=== PATIENT | male | born 1955 | race Caucasian/White ===

== ENCOUNTER → 2017-07-22 | Day surgery (SDC) | payer BC ==
[2017-07-07 13:25] VITALS: Ht 170.2 cm; Wt 113.6 kg
[~2017-07-22] VITALS: Ht 170.2 cm; Wt 113.6 kg
[~2017-07-22] MED LIST: ALFU10TA2 PO; ASCO100061 PO; ASPI81TA21 PO; CHOL1000 PO; CIPR-255 PO; DIAZ10TA PO; ERGO500037 PO; GEMF600T PO; HYDR-4383 PO; LIDOCAINE HCL 2% 2 ML VIAL (20MG/ML) ONE; LISI-787 PO; OMEG10007 PO; POTASSIUM PO; PRLSR20 PO; PROPOFOL IV EMULSION 10 MG/ML 20 ML VIAL IV ONE; PSYL48.59 PO; SODIUM CHLORIDE 0.9% 500ML 500 ML IV ONE; TURM500T PO
--- NOTE | 2017-07-22 10:15 | Endo History and Physical ---
History & Physical Date of Service: Jul 22, 2017. Chief Complaint: SCREENING Referring Physician: DR. DOCKERY History of Present Illness 62 yo CM who presents for screening colonoscopy. Past Medical History Osteoporosis, Arthritis, Reflux, Hypertension, Kidney Disease Past Surgical History Hx Cardiac Surgery: No Hx Internal Defibrillator: No Hx Pacemaker: No Hx Abdominal Surgery: No Hx of Implantable Prosthesis: No Hx Post-Op Nausea and Vomiting: No Hx Cancer Surgery: No Hx Thoracic Surgery: No Hx Orthopedic: Yes (LT KNEE SURGERY) Hx Urinary Tract Surgery: No Family History Polyp Social History Smoking Status: Former Smoker Hx Substance Use: Yes (SEE MED LIST) Hx Alcohol Use: No Allergies Coded Allergies: Adhesives (Verified Allergy, Unknown, RASH, 07/07/17) Erythromycin (Verified Allergy, Unknown, hives, 07/07/17) Penicillins (Verified Allergy, Unknown, hives, 07/07/17) Statins (Verified Allergy, Unknown, MUSCLE CRAMPS AND SPASMS, 07/07/17) Uncoded Allergies: DUST, POLLEN, HAY FEVER (Allergy, Unknown, ., 07/07/17) HORSES, CATS (Allergy, Unknown, ., 07/07/17) Current Medications Reported Home Medications Medications Dose Route/Sig Max Daily Dose Days Date Category Dose Instructions Metamucil (Psyllium) 48.57 % Pow 1 Dose PO QAM 07/07/17 Reported Lopid (Gemfibrozil) 600 Mg Tab 600 Mg PO BID 07/07/17 Reported Vitamin D3 (Cholecalciferol) 1,000 Unit Tab 1 Tab PO QAM 07/07/17 Reported [Potassium] 525 Mg PO QPM 07/07/17 Reported Turmeric (Turmeric (Curcuma Longa)) 500 Mg Tab 1 Tab PO QAM 07/07/17 Reported Zestoretic 20-12.5 mg (Lisinopril & Hydrochlorothiazi) 1 Tab Tab 1 Tab PO QAM 07/07/17 Reported Vitamin D 03223 Unit (Ergocalciferol) 50,000 Unit Cap 50,000 Unit PO WK 07/07/17 Reported Uroxatral (Alfuzosin HCl) 10 Mg Tab 10 Mg PO QPM 07/07/17 Reported Cipro (Ciprofloxacin Hcl) 500 Mg Tab 500 Mg PO BID PRN 07/07/17 Reported [place] 10/325 Tab (Acetaminophen/Hydrocodone Bitart) 1 Tab Tab 1 Tab PO Q6H PRN 07/07/17 Reported Ascorbic Acid 1,000 Mg Tab 1 Tab PO QAM 07/07/17 Reported Valium (Diazepam) 10 Mg Tab 10 Mg PO HS 03/21/[address] WITH MEDICATION Prilosec (Omeprazole) 20 Mg Capcr 20 Mg PO BID 03/21/15 Reported Ecotrin Or Generic (Aspirin) 81 Mg Tab 81 Mg PO QAM 03/21/15 Reported [place]-3 (Fish Oil) 1 Ea Cap 2 Cap PO QAM 01/01/08 Reported Vital Signs Weight (Kilograms): 113.64 Height (Feet): 5 Height (Inches): 7 Date Time Temp Pulse Resp B/P (MAP) Pulse Ox O2 Delivery O2 Flow Rate FiO2 07/22/17 09:47 144/91 (108) 07/22/17 09:45 36.8 91 20 152/107 (122) 98 Room Air Physical Exam General Appearance: WD/WN, no apparent distress Respiratory/Chest: Auscultation: breath sounds normal Cardiovascular: Heart Auscultation: RRR Abdomen: Bowel Sounds: normal Inspection & Palpation: soft, non-distended, no tenderness, guarding & rebound Assessment and Plan Assessment: 62 yo CM who presents for screening colonoscopy. Plan: Proceed with colonoscopy.
--- NOTE | 2017-07-22 10:44 | GI REPORT ---
Procedure Date: 07/22/2017 10:16 AM Procedure: Colonoscopy Indications: Screening for colorectal malignant neoplasm Medicines: Monitored Anesthesia Care Complications: No immediate complications. Estimated Blood Loss: Estimated blood loss: none. Procedure: Pre-Anesthesia Assessment: - Prior to the procedure, a History and Physical was performed, and patient medications and allergies were reviewed. The patient's tolerance of previous anesthesia was also reviewed. The risks and benefits of the procedure and the sedation options and risks were discussed with the patient. All questions were answered, and informed consent was obtained. Prior Anticoagulants: The patient has taken no previous anticoagulant or antiplatelet agents. ASA Grade Assessment: II - A patient with mild systemic disease. After reviewing the risks and benefits, the patient was deemed in satisfactory condition to undergo the procedure. After I obtained informed consent, the scope was passed under direct vision. Throughout the procedure, the patient's blood pressure, pulse, and oxygen saturations were monitored continuously. The Scope was introduced through the anus and advanced to the terminal ileum. The colonoscopy was performed without difficulty. The patient tolerated the procedure well. The quality of the bowel preparation was good. The terminal ileum, ileocecal valve, appendiceal orifice, and rectum were photographed. Findings: The colon (entire examined portion) appeared normal. The perianal and digital rectal examinations were normal. Impression: - The entire examined colon is normal. - No specimens collected. Recommendation: - Resume previous diet. - Continue present medications. - Repeat colonoscopy in 10 years for surveillance. - Return to primary care physician as previously scheduled. Edy Segal DO 07/22/2017 10:44:33 AM This report has been signed electronically. Note Initiated On: 07/22/2017 10:16 AM I attest to the content of the Intraoperative Record and orders documented therein, exceptions below
--- NOTE | 2017-07-22 10:46 | Discharge Instructions ---
Endoscopy Patient Instructions Date / Procedure(s) Performed Jul 22, 2017. Colonoscopy Allergy Information Coded Allergies: Adhesives (Verified Allergy, Unknown, RASH, 07/07/17) Erythromycin (Verified Allergy, Unknown, hives, 07/07/17) Penicillins (Verified Allergy, Unknown, hives, 07/07/17) Statins (Verified Allergy, Unknown, MUSCLE CRAMPS AND SPASMS, 07/07/17) Uncoded Allergies: DUST, POLLEN, HAY FEVER (Allergy, Unknown, ., 07/07/17) HORSES, CATS (Allergy, Unknown, ., 07/07/17) Discharge Date / Findings Jul 22, 2017. Normal exam Medication Instructions Stopped Medication(s): ASPIRIN 81MG 07/21/17 OK to resume all medications today as prescribed Reported Home Medications Medications Dose Route/Sig Max Daily Dose Days Date Category Dose Instructions Metamucil (Psyllium) 48.57 % Pow 1 Dose PO QAM 07/07/17 Reported Lopid (Gemfibrozil) 600 Mg Tab 600 Mg PO BID 07/07/17 Reported Vitamin D3 (Cholecalciferol) 1,000 Unit Tab 1 Tab PO QAM 07/07/17 Reported [Potassium] 525 Mg PO QPM 07/07/17 Reported Turmeric (Turmeric (Curcuma Longa)) 500 Mg Tab 1 Tab PO QAM 07/07/17 Reported Zestoretic 20-12.5 mg (Lisinopril & Hydrochlorothiazi) 1 Tab Tab 1 Tab PO QAM 07/07/17 Reported Vitamin D 57280 Unit (Ergocalciferol) 50,000 Unit Cap 50,000 Unit PO WK 07/07/17 Reported Uroxatral (Alfuzosin HCl) 10 Mg Tab 10 Mg PO QPM 07/07/17 Reported Cipro (Ciprofloxacin Hcl) 500 Mg Tab 500 Mg PO BID PRN 07/07/17 Reported [place] 10/325 Tab (Acetaminophen/Hydrocodone Bitart) 1 Tab Tab 1 Tab PO Q6H PRN 07/07/17 Reported Ascorbic Acid 1,000 Mg Tab 1 Tab PO QAM 07/07/17 Reported Valium (Diazepam) 10 Mg Tab 10 Mg PO HS 03/21/[address] WITH MEDICATION Prilosec (Omeprazole) 20 Mg Capcr 20 Mg PO BID 03/21/15 Reported Ecotrin Or Generic (Aspirin) 81 Mg Tab 81 Mg PO QAM 03/21/15 Reported [place]-3 (Fish Oil) 1 Ea Cap 2 Cap PO QAM 01/01/08 Reported Provider Instructions Activity Restrictions - No exercising or heavy lifting for 24 hours. - Do not drink alcohol the day of the procedure. - Do not drive a car or operate machinery until the day after the procedure. - Do not make any important decisions or sign important papers in 24 hours after the procedure. Following Day: - Return to full activity which may include returning to work/school. Diet Start your diet with liquids and light foods (jello, soup, juice, toast). Then eat your usual diet if not nauseated. Treatment For Common After Affects For mild abdominal pain, bloating, or excessive gas: - Rest - Eat lightly - Lie on right side Follow-Up Information Follow-up with DR. DOCKERY as scheduled Anesthesia Information What You Should Know You have had a procedure that required some medicine to reduce anxiety and discomfort. This treatment is called moderate sedation. After receiving the treatment, you may be sleepy, but you will be able to breathe on your own. The effects of the treatment may last for several hours. Follow these instructions along with Activity/Diet recommendations noted above: * Do NOT do anything where dizziness or clumsiness would be dangerous. * Rest quietly at home today, then you can be up and about tomorrow. * Have a responsible person stay with you the rest of today. * You may have had an I.V. today. If so, you may take the dressing off later today. Recommendations Call your doctor if: * Trouble breathing * Continuous vomiting for more than 24 hours * Temperature above 101 degrees * Severe abdominal pain or bloating * Pain not relieved by pain medicine ordered * There is increased drainage or redness from any incision * A large amount of rectal bleeding greater than 2-3 tablespoons. (If you had a polyp/s removed or have hemorrhoids, a small amount of blood - from the rectum is to be expected.) * You have any unanswered questions or concerns. IN THE EVENT OF A SERIOUS EMERGENCY, GO TO THE NEAREST EMERGENCY ROOM Your discharge instructions were prepared by provider Edy Segal. Patient Instructions Signature Page Prem De Jesus Patient (or Guardian) Signature/Date: I have read and understand the instructions given to me by my caregivers. Caregiver/RN/Doctor Signature/Date: The above-named patient and/or guardian has received patient instructions on this date. + Original Patient Signature Page (only) stays with chart. Please make copy for patient.
[2017-07-22 10:53] VITALS: BP 125/89; PULSE 76; O2SAT 96
--- NOTE | 2017-07-22 11:27 | Anesthesiology Progress Note ---
Anesthesia Post Op Note Date & Time Jul 22, 2017 at 11:27 Vital Signs Pain Intensity: 0 Vital Signs Past 12 Hours Date Time Temp Pulse Resp B/P (MAP) Pulse Ox O2 Delivery O2 Flow Rate FiO2 07/22/17 10:53 76 20 125/89 (101) 96 Room Air 07/22/17 10:39 83 16 135/85 (102) 95 Room Air 07/22/17 09:47 144/91 (108) 07/22/17 09:45 36.8 91 20 152/107 (122) 98 Room Air Notes Mental Status: alert / awake / arousable, participated in evaluation Pt Amnestic to Procedure: Yes Nausea / Vomiting: adequately controlled Pain: adequately controlled Airway Patency, RR, SpO2: stable & adequate BP & HR: stable & adequate Hydration State: stable & adequate Anesthetic Complications: no major complications apparent
== END | disposition home or self-care (01) ==
LOC: C.GI 09:11
PROVIDERS: ATTEND Internal Medicine
DX: Z12.11 Encounter for screening for malignant neoplasm of colon (principal); I10 Essential (primary) hypertension; N28.9 Disorder of kidney and ureter, unspecified; K21.9 Gastro-esophageal reflux disease without esophagitis; M81.0 Age-related osteoporosis without current pathological fracture; M19.90 Unspecified osteoarthritis, unspecified site; Z87.891 Personal history of nicotine dependence; Z83.71 Family history of colonic polyps; Z79.899 Other long term (current) drug therapy

== ENCOUNTER 2017-10-10 08:23 | Emergency (ER) | payer BC ==
[~2017-10-10] VITALS: Ht 171.5 cm; Wt 102.8 kg
[~2017-10-10 08:23] MED LIST changes: -LIDOCAINE HCL 2% 2 ML VIAL (20MG/ML) ONE; -PROPOFOL IV EMULSION 10 MG/ML 20 ML VIAL IV ONE; -SODIUM CHLORIDE 0.9% 500ML 500 ML IV ONE
[2017-10-10 08:30] VITALS: TEMP 36.9; Ht 171.5 cm; Wt 102.8 kg
[2017-10-10] MEDS ORDERED: SODIUM CHLORIDE 0.9% 1000ML 1,000 ML IV ONE ×2 (09:00→10:15)
[2017-10-10] MEDS ORDERED: OMEG120013 PO (09:07)
[2017-10-10] MEDS ORDERED: POTA1TAB PO (09:07)
[2017-10-10] MEDS ORDERED: TURM1CAP2 PO (09:07)
[2017-10-10 09:27] LABS: BASO % 0.2 %; BASO ABS # 0.02 K/uL (0-0.2); EOS % 0.9 %; HEMATOCRIT 44.2 % (42-52); HEMOGLOBIN 16.2 g/dL (14.0-18.0); IG# 0.05 K/uL (0.00-0.02); LYMPH % 28.9 %; LYMPH ABS # 3.17 K/uL (1.2-3.4); MEAN CELL VOLUME 87.9 fL (80-100); MEAN CORPUSCULAR HEMOGLOBIN 32.2 pg (25-34); MEAN CORPUSCULAR HGB CONC 36.7 g/dl (32-36); MEAN PLATELET VOLUME 11.1 fL (7.4-10.4); MONO ABS # 0.66 K/uL (0.11-0.59); NEUT % 63.5 %; NEUT ABS # 6.98 K/uL (1.4-6.5); PLATELET COUNT 242 K/uL (130-400); RED CELL DISTRIBUTION WIDTH CV 12.4 % (11.5-14.5); RED CELL DISTRIBUTION WIDTH SD 39.8 fL (36.4-46.3); WHITE BLOOD COUNT 10.98 K/uL (4.8-10.8)
[2017-10-10 09:49] LABS: CALCIUM 8.7 mg/dl (8.5-10.1); CREATININE 1.02 mg/dl (0.60-1.40); POTASSIUM 3.3 mmol/L (3.5-5.1)
[2017-10-10 10:05] LABS: HEMOGLOBIN A1C 13.6 % (4.5-5.6)
[2017-10-10] MEDS ORDERED: NovoLIN-R INSULIN PER UNIT CHARGE ONE (10:13)
[2017-10-10] MEDS ORDERED: INSULIN HUMAN REGULAR SC SCH (11:00)
[2017-10-10] MEDS ORDERED: GLC/500 PO (12:10)
[2017-10-10 12:32] VITALS: BP 129/79; PULSE 86; O2SAT 97
--- NOTE | 2017-10-10 12:59 | EMERGENCY ROOM VISIT NOTE ---
ED Visit Note First contact with patient: 08:36 Chief Complaint: My blood sugars elevated. History of Present Illness: Mr. De Jesus is a 62-year-old white male who ambulates into the ED complaining of hyperglycemia. Historically patient reports she has a history of hypertension. He does also report that his primary care provider retired approximately one year ago leaving a series of refills on his prescription medications for year. He was seen by a new primary care provider 2 months ago but medical records were pending from his older provider and full evaluation was not done. Patient reports over the last 2 months he has noted that he has had increased thirst, increased urination, weight loss of approximately 20 pounds and mild fatigue. He reports his girlfriends sister lent him a glucometer and last night his blood sugar was over 500 and when he checked his blood sugar this morning it was approximately 350. He did contact his new primary care provider' s office, [facility], and they recommended that he, to the ED for further evaluation and care. Currently patient's only complaints his polydipsia, polyuria and fatigued. He has noted that he has been drinking increasing amounts of soda and finds it difficult not to go to the bathroom or wake up feeling dry and possibly dehydrated. He has not identified any alleviating factors related to these symptoms. He has not treated the symptoms prior to arrival at the hospital. He denies any associated fevers, chills, sweats, skin eruptions, skin color changes, headache, dizziness, lightheadedness, upper respiratory tract symptoms , chest pain, shortness of breath, abdominal pain, nausea, vomiting, decreased appetite, diarrhea, constipation, urinary burning, hematuria, back/flank pain, extremity weakness/numbness/tingling. Review of Systems: As noted above in history of present illness. At least body systems were reviewed and found to be negative as noted above. Past Medical History: As previously noted, gastric reflux, gallbladder disease, degenerative disc disease, prostatitis, Mnire's disease and status post cholecystectomy. Current Medications: Allergies to Medications: Erythromycin, penicillin, statins, gemfibrozil. Social History: Patient is not employed; he feels safe in his home environment; he and I's tobacco and alcohol use. Physical Examination: Vital Signs: Date Time Temp Pulse Resp B/P (MAP) Pulse Ox O2 Delivery O2 Flow Rate FiO2 10/10/17 12:32 86 18 129/79 97 10/10/17 11:34 88 16 127/81 95 Room Air 10/10/17 10:30 88 16 138/91 98 Room Air 10/10/17 08:30 36.9 105 20 158/86 95 Room Air GENERAL: 59-year-old male in mild distress due to symptoms, nontoxic-appearing, afebrile and hemodynamically stable. Patient is anxious and intermittently tearful. NEUROLOGICAL: Awake, alert and oriented to person, place and time. Answering questions appropriately and following commands. Normal gait. Good hand eye coordination. No focal motor or sensory deficits. Cranial nerves II through XII grossly intact. SKIN: Warm, dry and pink. No soft tissue eruptions or trauma noted. HEENT: Atraumatic and normocephalic. External ears are nontender. Auditory canals are pink and patent. Tympanic membranes were not erythematous or edematous. PERRLA. Sclera white and conjunctiva pink. No drainage from naris. Oral cavity moist and pink. Pharynx is nonerythematous or edematous. Speech normal. No lymphadenopathy. Trachea midline. No jugular venous distention. BACK: No tenderness over the bony spine. No CVA tenderness. THORAX: Lungs sounds are clear to auscultation and equal bilaterally with symmetrical chest wall. No wheezing, rales or rhonchi. No crepitus, tenderness , subcutaneous air or deformities noted. HEART: Regular rate and rhythm. No gallops, rubs or murmurs are appreciated. ABDOMEN: Flat, soft and nontender. Positive bowel sounds in all quadrants. No guarding, rigidity or organomegaly. EXTREMITIES: Moves all extremities well on command and with purpose. All distal neurovascular statuses are intact and equal bilaterally. ED Course: Patient is assessed as noted above. Patient's medication list was reviewed. Laboratory Testing: Test 10/10/17 09:05 10/10/17 09:29 Range/Units White Blood Count 10.98 4.8-10.8 K/uL Red Blood Count 5.03 4.7-6.1 M/uL Hemoglobin 16.2 14.0-18.0 g/dL Hematocrit 44.2 42-52 % Mean Corpuscular Volume 87.9 80-100 fL Mean Corpuscular Hemoglobin 32.2 25-34 pg Mean Corpuscular Hemoglobin Concent 36.7 32-36 g/dl Platelet Count 242 130-400 K/uL Mean Platelet Volume 11.1 7.4-10.4 fL Neutrophils (%) (Auto) 63.5 % Lymphocytes (%) (Auto) 28.9 % Monocytes (%) (Auto) 6.0 % Eosinophils (%) (Auto) 0.9 % Basophils (%) (Auto) 0.2 % Neutrophils # (Auto) 6.98 1.4-6.5 K/uL Lymphocytes # (Auto) 3.17 1.2-3.4 K/uL Monocytes # (Auto) 0.66 0.11-0.59 K/uL Eosinophils # (Auto) 0.10 0-0.5 K/uL Basophils # (Auto) 0.02 0-0.2 K/uL RDW Standard Deviation 39.8 36.4-46.3 fL RDW Coefficient of Variation 12.4 11.5-14.5 % Immature Granulocyte % (Auto) 0.5 % Immature Granulocyte # (Auto) 0.05 0.00-0.02 K/uL Sodium Level 127 136-145 mmol/L Potassium Level 3.3 3.5-5.1 mmol/L Chloride Level 90 98-107 mmol/L Carbon Dioxide Level 27 21-32 mmol/L Anion Gap 10.0 3-11 mmol/L Blood Urea Nitrogen 11 7-18 mg/dl Creatinine 1.02 0.60-1.40 mg/dl Est Creatinine Clear Calc Drug Dose 88.8 ml/min Estimated GFR () 92.2 Estimated GFR (Non- 79.5 BUN/Creatinine Ratio 11.0 10-20 Random Glucose 351 70-99 mg/dl Estimated Average Glucose 344 mg/dl Hemoglobin A1c 13.6 4.5-5.6 % Calcium Level 8.7 8.5-10.1 mg/dl Beta-Hydroxybutyric Acid 18.97 0.2-2.81 mg/dL Urine Color YELLOW Urine Appearance CLEAR CLEAR Urine pH 5.0 4.5-7.5 Urine Specific [place] 1.042 1.000-1.030 Urine Protein NEG NEG Urine Glucose (UA) 3+ NEG Urine Ketones 3+ NEG Urine Occult Blood NEG NEG Urine Nitrite NEG NEG Urine Bilirubin NEG NEG Urine Urobilinogen NEG NEG Urine Leukocyte Esterase NEG NEG EKG: Was read by myself and reviewed with Dr. Evans; shows normal sinus rhythm with a ventricular rate of 96 bpm. Normal axis, intervals and complexes. No signs of ischemia, injury or infarction. This was compared to her previous from February 2015 and no acute changes were noted. Patient was hydrated with normal saline and received 20 units of Regular Insulin subcutaneously. Patient's serum glucose levels were rechecked multiple times after his insulin and his initial sugar was 355 and on discharge was 272. Patient's case was reviewed with Dr. Evans; we agreed on diagnostic approach, treatment, disposition and plan. Patient's case was consulted with Dr. Meneses, [facility]; recommendations for starting the patient on Glucophage 500 mg twice a day and office follow-up in 2 days. Patient was reassessed multiple times during his stay in the emergency department. Patient was educated about today's findings and instructed on his treatment plan ; he verbalized understanding and agreement with this plan. Clinical Impression: Hyperglycemia. New onset diabetes. Hyponatremia. Hyperkalemia. Decision-Making: Initially my differential diagnosis I considered hyperglycemia , DKA, hyperosmolar hyperglycemia and other causes. Patient's blood pressure: Elevated. Blood pressure disposition: To chew a shovel. Disposition: Patient discharged home in stable condition; prior to departure he was reassessed and subjectively reported he was feeling better. Plan: Patient was prescribed 500 mg of Glucophage 2 times a day. Patient was encouraged to stay well-hydrated with increased water. Patient was encouraged to avoid all non-diabetic drinks including soda and ice tea. Patient was encouraged to keep your upcoming appointment with Dr. Meneses on Tuesday. Patient was encouraged to return to the ED for worsening symptoms, fevers, vomiting or any new/concerning symptoms.
== END 2017-10-10 12:30 | disposition home or self-care (01) ==
LOC: C.EDB 08:24 → C.EDA 12:30
DX: E11.65 Type 2 diabetes mellitus with hyperglycemia (principal); E87.1 Hypo-osmolality and hyponatremia; E87.5 Hyperkalemia; I10 Essential (primary) hypertension; K21.9 Gastro-esophageal reflux disease without esophagitis; K82.9 Disease of gallbladder, unspecified; N41.9 Inflammatory disease of prostate, unspecified; H81.09 Meniere's disease, unspecified ear